=== PATIENT | female | born 1965 | race American Indian/Alaskan Native ===

== ENCOUNTER 2017-01-30 21:08 | Observation (INO) | payer BC, OTHER ==
[2017-01-30] MEDS ORDERED: Aspirin 81 MG Tab.Chew PO ONE (21:28)
[2017-01-30] MEDS ORDERED: Sodium Chloride 0.9% 10 ML Syringe FLUSH PRN (21:28)
[2017-01-30] MEDS ORDERED: Nicotine 21 MG/24 Hr Patch TRDERM ONE (23:03)
--- NOTE | 2017-01-30 23:24 | EDM.PDOC ---
ED HPI GENERAL MEDICAL PROBLEM - General Chief Complaint: Chest Pain Stated Complaint: CHEST PAIN Time Seen by Provider: 01/30/17 21:17 Source of Information: Reports: Patient History Limitations: Reports: No Limitations - History of Present Illness INITIAL COMMENTS - FREE TEXT/NARRATIVE: The patient presents with chest pain. This started this morning. It is described as pressure. It comes and goes and it is worse with exertion. She is sweaty at times with it and she has chills. She has a slight cough. She does not have any history of coronary artery disease but she does have diabetes , HTN, hypercholesterolemia and she smokes. She has a family history of heart disease. She denies abdominal pain, nausea or vomiting. She did not take aspirin today. She has shortness of breath with it. Onset: Gradual Duration: Hour(s): (Since this morning) Location: Reports: Chest Quality: Reports: Pressure Severity: Moderate Improves with: Reports: None Worsens with: Reports: Movement Associated Symptoms: Reports: Chest Pain, Cough, Fever/Chills, Shortness of Breath. Denies: Nausea/Vomiting Mid-Sternal Chest Pain Score (Numeric/FACES): 10 - Related Data Allergies Allergy/AdvReac Type Severity Reaction Status Date / Time No Known Allergies Allergy Verified 01/30/17 21:15 Home Meds: Home Meds DULoxetine [Cymbalta] 30 mg PO DAILY 01/30/17 [History] Diclofenac Sodium [Voltaren] 50 mg PO BIDMEALS PRN 01/30/17 [History] Losartan [Cozaar] 50 mg PO DAILY 01/30/17 [History] metFORMIN [Glucophage XR] 1,000 mg PO BIDMEALS 01/30/17 [History] Past Medical History Cardiovascular History: Reports: High Cholesterol, Hypertension Gastrointestinal History: Reports: GERD Psychiatric History: Reports: Depression Endocrine/Metabolic History: Reports: Diabetes, Type II - Past Surgical History Female Surgical History: Reports: Tubal Ligation Social & Family History - Tobacco Use Smoking Status *Q: Current Every Day Smoker Years of Tobacco use: 30 Packs/Tins Daily: 1 - Caffeine Use Caffeine Use: Reports: Coffee - Recreational Drug Use Recreational Drug Use: No ED ROS GENERAL - Review of Systems Review Of Systems: See Below Constitutional: Reports: No Symptoms HEENT: Reports: No Symptoms Respiratory: Reports: Shortness of Breath Cardiovascular: Reports: Chest Pain Endocrine: Reports: No Symptoms GI/Abdominal: Reports: No Symptoms : Reports: No Symptoms Musculoskeletal: Reports: No Symptoms Skin: Reports: No Symptoms Neurological: Reports: No Symptoms ED EXAM, GENERAL - Physical Exam Exam: See Below Exam Limited By: No Limitations General Appearance: Alert, No Apparent Distress Ears: Normal External Exam Nose: Normal Inspection Head: Atraumatic, Normocephalic Neck: Normal Inspection Respiratory/Chest: No Respiratory Distress, Lungs Clear, Normal Breath Sounds Cardiovascular: Regular Rate, Rhythm, No Edema, No Murmur GI/Abdominal: Soft, Non-Tender, No Organomegaly, No Mass Back Exam: Normal Inspection Extremities: Normal Inspection Neurological: Alert, Oriented, No Motor/Sensory Deficits EKG INTERPRETATION EKG Date: 01/30/17 Time: 21:18 Rhythm: NSR Rate (Beats/Min): 76 [place]: Normal P-Wave: Present QRS: Normal ST-T: Normal QT: Normal Course - Vital Signs Last Recorded V/S: Last Vital Signs Temp 98.7 F 01/30/17 21:15 Pulse 80 01/30/17 21:15 Resp 20 01/30/17 21:15 BP 160/80 H 01/30/17 21:15 Pulse Ox 96 01/30/17 21:15 - Orders/Labs/Meds Orders: Active Orders 24 hr Category Date Time Status Cardiac Monitoring [RC] . DIRECTED Care 01/30/17 21:28 Active EKG 12 Lead [EKG Documentation Completion] [RC] STAT Care 01/30/17 21:22 Active Oxygen Therapy [RC] PRN Care 01/30/17 21:28 Active Peripheral IV Care [RC] . DIRECTED Care 01/30/17 21:28 Active Chest 1V Frontal [CR] Stat Exams 01/30/17 21:28 Taken Sodium Chloride 0.9% [Saline Flush] Med 01/30/17 21:28 Active 10 ml FLUSH ASDIRECTED PRN Peripheral IV Insertion Adult [OM.PC] Stat Oth 01/30/17 21:28 Ordered Medication Orders Sodium Chloride (Saline Flush) 10 ml FLUSH ASDIRECTED PRN PRN Reason: Keep Vein Open Last Admin: 01/30/17 21:36 Dose: 10 ml Labs: Laboratory Tests 01/30/17 01/30/17 01/30/17 Range/Units 21:30 21:30 21:30 WBC 8.90 (3.98-10.04) K/mm3 RBC 4.77 (3.98-5.22) M/mm3 Hgb 15.0 (11.2-15.7) gm/L Hct 42.8 (34.1-44.9) % MCV 89.7 (79.4-94.8) fl MCH 31.4 (25.6-32.2) pg MCHC 35.0 (32.2-35.5) g/dl RDW Std Deviation 43.0 (36.4-46.3) fL Plt Count 264 (182-369) K/mm3 MPV 10.2 (9.4-12.3) fl Neut % (Auto) 51.0 (34.0-71.1) % Lymph % (Auto) 38.8 (19.3-51.7) % Worth % (Auto) 7.6 (4.7-12.5) % Eos % (Auto) 1.6 (0.7-5.8) Baso % (Auto) 0.7 (0.1-1.2) % Neut # (Auto) 4.54 (1.56-6.13) K/mm3 Lymph # (Auto) 3.45 (1.18-3.74) K/mm3 Worth # (Auto) 0.68 H (0.24-0.36) K/mm3 Eos # (Auto) 0.14 (0.04-0.36) K/mm3 Baso # (Auto) 0.06 (0.01-0.08) K/mm3 D-Dimer, Quantitative 0.23 (0.19-0.59) mg/L Sodium 134 L (136-145) mEq/L Potassium 3.8 (3.5-5.1) mEq/L Chloride 99 (98-107) mEq/L Carbon Dioxide 25 (21-32) mEq/L Anion Gap 13.8 (5-15) BUN 10 (7-18) mg/dL Creatinine 0.6 (0.55-1.02) mg/dL Est Cr Clr Drug Dosing 93.64 mL/min Estimated GFR (MDRD) > 60 (>60) mL/min BUN/Creatinine Ratio 16.7 (14-18) Glucose 396 H (74-106) mg/dL Calcium 9.2 (8.5-10.1) mg/dL Total Bilirubin 0.6 (0.2-1.0) mg/dL AST 17 (15-37) U/L ALT 30 (14-59) U/L Alkaline Phosphatase 114 (46-116) U/L Troponin I < 0.017 (0.00-0.056) ng/mL Total Protein 7.2 (6.4-8.2) g/dl Albumin 3.6 (3.4-5.0) g/dl Globulin 3.6 gm/dL Albumin/Globulin Ratio 1.0 (1-2) Meds: Medications Generic Name Dose Route Start Last Admin Trade Name Freq PRN Reason Stop Dose Admin Sodium Chloride 10 ml 01/30/17 21:28 01/30/17 21:36 Saline Flush FLUSH 10 ml ASDIRECTED PRN Administration Keep Vein Open Discontinued Medications Generic Name Dose Route Start Last Admin Trade Name Freq PRN Reason Stop Dose Admin Aspirin 324 mg 01/30/17 21:28 01/30/17 21:36 Aspirin PO 01/30/17 21:29 324 mg ONETIME ONE Administration Nicotine 21 mg 01/30/17 23:03 Habitrol TRDERM 01/30/17 23:04 ONETIME ONE - Re-Assessments/Exams Free Text/Narrative Re-Assessment/Exam: 01/30/17 23:35 I ordered an IV saline lock, oxygen as needed, EKG, CXR, labs and aspirin. Her EKG shows a NSR with no acute changes. Her CXR shows nothing acute. Her labs look good. Her troponin was negative. Her CP is gone with the aspirin. I feel she needs to be admitted for chest pain rule out. I called Dr Geronimo and she agreed to the admission. Departure - Departure Time of Disposition: 23:26 Disposition: Refer to Observation Condition: Good Clinical Impression: Chest pain Qualifiers: Chest pain type: unspecified Qualified Code(s): R07.9 - Chest pain, unspecified Referrals: PCP,None [Primary Care Provider] - Forms: ED Department Discharge - My Orders Last 24 Hours: My Active Orders 01/30/17 21:22 EKG 12 Lead [EKG Documentation Completion] [RC] STAT 01/30/17 21:28 Cardiac Monitoring [RC] . DIRECTED Oxygen Therapy [RC] PRN Peripheral IV Care [RC] . DIRECTED Chest 1V Frontal [CR] Stat Sodium Chloride 0.9% [Saline Flush] 10 ml FLUSH ASDIRECTED PRN Peripheral IV Insertion Adult [OM.PC] Stat - Assessment/Plan Last 24 Hours: My Active Orders 01/30/17 21:22 EKG 12 Lead [EKG Documentation Completion] [RC] STAT 01/30/17 21:28 Cardiac Monitoring [RC] . DIRECTED Oxygen Therapy [RC] PRN Peripheral IV Care [RC] . DIRECTED Chest 1V Frontal [CR] Stat Sodium Chloride 0.9% [Saline Flush] 10 ml FLUSH ASDIRECTED PRN Peripheral IV Insertion Adult [OM.PC] Stat
[2017-01-31] MEDS ORDERED: Nitroglycerin 0.4 MG Tab.SL SL PRN (00:36)
[2017-01-31] MEDS ORDERED: Temazepam 7.5 MG Cap PO PRN (00:36)
[2017-01-31] MEDS ORDERED: 50% Dextrose in Water 50 ML Syringe IVPUSH PRN (00:36)
[2017-01-31] MEDS: Insulin Aspart 100 Units/ML 3 ML Pen SUBCUT SCH ×6 (01:08→21:00)
[2017-01-31] MEDS: Nitroglycerin 2% Oint 1 GM UD Packet TOP SCH ×2 (01:10→06:01)
[2017-01-31] MEDS ORDERED: Diphtheria,Pertussis(Acell),Tetanus Vaccine 0.5 ML SDV IM ONE (01:17)
[2017-01-31] MEDS ORDERED: Pneumococcal Polyvalent-23 Vaccine 0.5 ML SDV IM ONE (01:17)
[2017-01-31] MEDS ORDERED: Acetaminophen 325 MG Tab PO ONE (01:47)
[2017-01-31] MEDS ORDERED: Morphine 2 MG/ML Syringe IVPUSH PRN (06:44)
[2017-01-31] MEDS ORDERED: Potassium Chloride 20 MEQ Tab.ER PO ONE (07:01)
[2017-01-31] MEDS ORDERED: Magnesium Oxide 400 MG Tab PO ONE (07:02)
--- NOTE | 2017-01-31 07:40 | CR ---
Chest: Portable view of the chest was obtained. Comparison: Previous chest x-ray of 03/30/10. Heart size and mediastinum are within normal limits for portable technique. Nodular density is noted within the left upper lung believed to represent costochondral calcification of the left first rib. Lungs otherwise are clear. Mild degenerative change is seen within both acromioclavicular joints. Impression: 1. Incidental findings. Nothing acute is appreciated on portable chest x-ray. Diagnostic code #2
[2017-01-31] MEDS: Pantoprazole 40 MG Tab.CR PO SCH (09:41)
[2017-01-31] MEDS: DULoxetine 30 MG Cap PO SCH (09:41)
--- NOTE | 2017-01-31 09:45 | PCM.HP ---
<Silvano Zimmerman - Last Filed: 01/31/17 12:38> H&P History of Present Illness - General Date of Service: 01/31/17 Admit Problem/Dx: Admission Diagnosis/Problem Admission Diagnosis/Problem Chest pain Source of Information: Patient, Old Records, RN Notes Reviewed History Limitations: Reports: No Limitations - History of Present Illness Initial Comments - Free Text/Narative: Janessa Brown is a 51-year-old female patient who was seen in our ED on the evening of 01/30/17. She presented with a chest pressure that started in the morning, comes and goes, and was worse with exertion. She reported being sweaty at times and having chills. She also reported a slight cough productive of clear phlegm. No history of CAD, however she does have a history of type II diabetes, HTN, hypercholesterolemia, GERD, and she is a smoker. She reports smoking 1 pack every day for 30 years. She does have a family history of heart disease with her mother. Denies abdominal pain nausea or vomiting. She denies any shortness of breath. Her initial vital signs were pulse 80, respirations 20 , BP 160/80, pulse ox of 96. EKG in the ED showed normal sinus rhythm at 76 beats per minute with no ectopy noted. She was started on 2 L of oxygen and given aspirin. White count was 8.90, hemoglobin 15.0, hematocrit 42.8, platelets 264, d-dimer was negative at 0.23, her sodium was low at 136, potassium 3.8, creatinine 0.6, liver enzymes were normal, and troponin was negative. Her glucose was elevated at 396. Her chest pain resolved in the ED and she was subsequently admitted to [facility] for chest pain rule out. Chest x-ray was unremarkable with mediastinum and cardiac silhouette within normal limits. There were some degenerative changes noted. She was started on nitroglycerin paste and oxygen therapy via CT continued at 2 L. Upon further investigation patient reports that the chest pressure does come and go occasionally and she has had it for some time. She rates it a 10/10 when it does occur. She said she can normally hold her breath or rest and the feeling will go away, lasting only for a few seconds. She did however state that he can last as long as a couple of minutes. She reported the pressure will start above her left breast and sometimes will radiate to the right side. It does not radiate into her neck, back, or arms. It is currently a 1-2 in intensity. She has never been evaluated for this chest pressure before. She also is complaining of a headache. She reports they are migraines, however upon further examination, they start in the back of her neck and radiate upwards to her forehead in a cap-like fashion. She reports being on OTC medication for this with caffeine. She has been a type II diabetic for quite sometime. Her sugars here have been rather high. I questioned her about what her sugars have been at home and she reports are normally in the 300s. She states she checks her sugars about once a week. I asked who follows her for diabetic medications and how often they check her, or if there have been any concerns with her numbers lately. She reports that she has had difficulty getting in to [facility], as there fairly booked up. She also states that she is unable to get a regular provider when she goes there. She states she was as low as 150 once many years ago however she has not been that low since then. Onset of Symptoms: Reports: Gradual Symptom Onset Date: 01/30/17 Duration of Symptoms: Reports: Recurring, Other (Seconds to minutes ) Location: Reports: Chest Quality: Reports: Sharp Severity: Severe Improves with: Reports: Rest Worsens with: Reports: Movement Context: Reports: Sick Contact (Daughter Dx'ed with hand, foot, and mouth disease ) Associated Symptoms: Reports: cough w sputum (chronic with white/clear sputum), Headaches Mid-Sternal Chest Pain Score (Numeric/FACES): 4 - Related Data Allergies/Adverse Reactions: Allergies Allergy/AdvReac Type Severity Reaction Status Date / Time No Known Allergies Allergy Verified 01/31/17 02:34 Home Medications: Home Meds DULoxetine [Cymbalta] 30 mg PO DAILY 01/30/17 [History] Diclofenac Sodium [Voltaren] 100 mg PO BIDMEALS PRN 01/30/17 [History] Losartan [Cozaar] 50 mg PO DAILY 01/30/17 [History] metFORMIN [Glucophage XR] 1,000 mg PO BIDMEALS 01/30/17 [History] Aspirin/Acetaminophen/Caffeine [Migraine Formula Caplet] 1 tab PO Q12HR PRN 10/12 [History] Cyclobenzaprine [Flexeril] 10 mg PO BID PRN 01/31/17 [History] Ibuprofen 800 mg PO Q8HR PRN 01/31/17 [History] Omeprazole Magnesium [Prilosec Otc] 20 mg PO DAILY 01/31/17 [History] Past Medical History Other HEENT History: Glasses Cardiovascular History: Reports: High Cholesterol, Hypertension Gastrointestinal History: Reports: Chronic Constipation, Chronic Diarrhea, GERD Genitourinary History: Reports: UTI, 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 Fracture to lower vertibrae 6 years ago. Neurological History: Reports: Headaches, Chronic, Migraines Other Neuro History: past month frequent migraines Psychiatric History: Reports: Anxiety, Depression, Panic Attack Other Psychiatric History: Anxiety/Panic attacks with enclosed spaces, driving, or loud spaces. recently started on pills for Depression in November Endocrine/Metabolic History: Reports: Diabetes, Type II - Past Surgical History Female Surgical History: Reports: Tubal Ligation Social & Family History - Family History Cardiac: Reports: Heart Failure Other Cardiac Family History: mom and sister. - Tobacco Use Smoking Status *Q: Current Every Day Smoker Years of Tobacco use: 35 Packs/Tins Daily: 1 Used Tobacco, but Quit: No Second Hand Smoke Exposure: Yes - Caffeine Use Caffeine Use: Reports: Coffee - Alcohol Use Days Per Week of Alcohol Use: 2 Number of Drinks Per Day: 5 Total Drinks Per Week: 10 - Recreational Drug Use Recreational Drug Use: No H&P Review of Systems - Review of Systems: Review Of Systems: See Below General: Denies: Fever, Chills (has had but none currently), Weakness, Fatigue, Night Sweats HEENT: Reports: Headaches (3-4 in pain), Sore Throat (mild ). Denies: Ear Pain , Eye Pain, Hearing Changes, Sinus Congestion, Visual Changes Pulmonary: Reports: Cough (chronic ), Sputum (chronic and clear ). Denies: Shortness of Breath, Wheezing, Pleuritic Chest Pain Cardiovascular: Denies: Chest Pain, Palpitations, Dyspnea on Exertion, Edema, Lightheadedness, Syncope, Claudication Gastrointestinal: Denies: Abdominal Pain, Black Stool, Constipation, Diarrhea, Distension, Flatus, Nausea, Vomiting Genitourinary: Denies: Dysuria, Pain, Urgency Musculoskeletal: Reports: No Symptoms Skin: Denies: Cyanosis, Jaundice, Mottled, Diaphoresis Psychiatric: Reports: No Symptoms Neurological: Reports: No Symptoms Hematologic/Lymphatic: Reports: No Symptoms Immunologic: Reports: No Symptoms Exam - Exam Exam: See Below - Vital Signs Vital Signs: Last Vital Signs Temp 97.9 F 01/31/17 07:30 Pulse 68 01/31/17 07:30 Resp 16 01/31/17 07:30 BP 115/62 01/31/17 07:30 Pulse Ox 97 01/31/17 07:30 Weight: 80.739 kg - Exam Quality Assessment: Supplemental Oxygen (2L), DVT Prophylaxis General: Alert, Oriented, Cooperative HEENT: Conjunctiva Clear, EOMI, Hearing Intact, Mucosa Moist & [place], Posterior Pharynx Clear, Pupils Equal, Pupils Reactive Neck: Supple, Trachea Midline. No: Lymphadenopathy, JVD, Thyromegaly Lungs: Clear to Auscultation, Normal Respiratory Effort, Wheezing Cardiovascular: Regular Rate, Regular Rhythm GI/Abdominal Exam: Normal Bowel Sounds, Soft, Non-Tender, No Organomegaly, No Distention, No Abnormal Bruit, No Mass (Female) Exam: Deferred Rectal (Female) Exam: Deferred Back Exam: Normal Inspection, Full Range of Motion Extremities: Normal Inspection, Normal Range of Motion, Non-Tender, No Pedal Edema, Normal Capillary Refill Peripheral Pulses: 2+: Radial (L), Radial (R), Posterior Tibial (L), Posterior Tibial (R), Dorsalis Pedis (L), Dorsalis Pedis (R) Skin: Warm, Dry, Intact Neuro Extensive - Mental Status: Alert, Oriented x3, Normal Mood/Affect, Normal Cognition Psychiatric: Alert, Normal Affect, Normal Mood - Patient Data Lab Results Last 24 hrs: Laboratory Results - last 24 hr 01/31/17 01/31/17 01/31/17 Range/Units 01:08 05:43 05:43 WBC 8.92 (3.98-10.04) K/mm3 RBC 4.78 (3.98-5.22) M/mm3 Hgb 15.1 (11.2-15.7) gm/L Hct 43.0 (34.1-44.9) % MCV 90.0 (79.4-94.8) fl MCH 31.6 (25.6-32.2) pg MCHC 35.1 (32.2-35.5) g/dl RDW Std Deviation 42.8 (36.4-46.3) fL Plt Count 255 (182-369) K/mm3 MPV 10.3 (9.4-12.3) fl Neut % (Auto) 56.4 (34.0-71.1) % Lymph % (Auto) 33.3 (19.3-51.7) % [place] % (Auto) 7.0 (4.7-12.5) % Eos % (Auto) 2.4 (0.7-5.8) Baso % (Auto) 0.6 (0.1-1.2) % Neut # (Auto) 5.04 (1.56-6.13) K/mm3 Lymph # (Auto) 2.97 (1.18-3.74) K/mm3 [place] # (Auto) 0.62 H (0.24-0.36) K/mm3 Eos # (Auto) 0.21 (0.04-0.36) K/mm3 Baso # (Auto) 0.05 (0.01-0.08) K/mm3 Sodium 139 (136-145) mEq/L Potassium 3.4 L (3.5-5.1) mEq/L Chloride 101 (98-107) mEq/L Carbon Dioxide 28 (21-32) mEq/L Anion Gap 13.4 (5-15) BUN 13 (7-18) mg/dL Creatinine 0.5 L (0.55-1.02) mg/dL Est Cr Clr Drug Dosing 114.72 mL/min Estimated GFR (MDRD) > 60 (>60) mL/min BUN/Creatinine Ratio 26.0 H (14-18) Glucose 261 H (74-106) mg/dL POC Glucose 262 H (70-105) mg/dL Hemoglobin A1c (4.50-6.20) % Calcium 8.6 (8.5-10.1) mg/dL Magnesium 1.7 L (1.8-2.4) mg/dl Troponin I < 0.017 (0.00-0.056) ng/mL Triglycerides 237 H (<150) mg/dL Cholesterol 215 H (<200) mg/dL LDL Cholesterol Direct 145 H* (<100) mg/dL HDL Cholesterol 39.0 L (40-59) mg/dL 01/31/17 01/31/17 Range/Units 05:43 05:59 WBC (3.98-10.04) K/mm3 RBC (3.98-5.22) M/mm3 Hgb (11.2-15.7) gm/L Hct (34.1-44.9) % MCV (79.4-94.8) fl MCH (25.6-32.2) pg MCHC (32.2-35.5) g/dl RDW Std Deviation (36.4-46.3) fL Plt Count (182-369) K/mm3 MPV (9.4-12.3) fl Neut % (Auto) (34.0-71.1) % Lymph % (Auto) (19.3-51.7) % [place] % (Auto) (4.7-12.5) % Eos % (Auto) (0.7-5.8) Baso % (Auto) (0.1-1.2) % Neut # (Auto) (1.56-6.13) K/mm3 Lymph # (Auto) (1.18-3.74) K/mm3 [place] # (Auto) (0.24-0.36) K/mm3 Eos # (Auto) (0.04-0.36) K/mm3 Baso # (Auto) (0.01-0.08) K/mm3 Sodium (136-145) mEq/L Potassium (3.5-5.1) mEq/L Chloride (98-107) mEq/L Carbon Dioxide (21-32) mEq/L Anion Gap (5-15) BUN (7-18) mg/dL Creatinine (0.55-1.02) mg/dL Est Cr Clr Drug Dosing mL/min Estimated GFR (MDRD) (>60) mL/min BUN/Creatinine Ratio (14-18) Glucose (74-106) mg/dL POC Glucose 253 H (70-105) mg/dL Hemoglobin A1c 9.20 H (4.50-6.20) % Calcium (8.5-10.1) mg/dL Magnesium (1.8-2.4) mg/dl Troponin I (0.00-0.056) ng/mL Triglycerides (<150) mg/dL Cholesterol (<200) mg/dL LDL Cholesterol Direct (<100) mg/dL HDL Cholesterol (40-59) mg/dL Result Diagrams: 01/31/17 05:43 01/31/17 05:43 EKG INTERPRETATION EKG Date: 01/31/17 Time: 05:47 Rhythm: NSR Rate (Beats/Min): 71 [place]: Normal P-Wave: Present QRS: Normal ST-T: Normal QT: Normal Comparison: No Change (Prior EKG on 01/30/17) *Q Meaningful Use (ADM) - VTE *Q VTE Criteria *Q: - Stroke *Q Stroke Criteria *Q: - AMI *Q AMI Criteria *Q: - Problem List (1) Headache SNOMED Code(s): 49082456 ICD Code: R51 - HEADACHE Status: Acute Priority: Medium Current Visit: Yes QualifierTitle: Headache type: tension-type Headache chronicity pattern: episodic headache Intractability: intractable Qualified Code(s): G44.211 - Episodic tension-type headache, intractable (2) Cough productive of clear sputum SNOMED Code(s): 68340721 ICD Code: R05 - COUGH Status: Acute Priority: Low Current Visit: Yes (3) Hyperglycemia due to type 2 diabetes mellitus SNOMED Code(s): 343407093062799, 328943853861601 ICD Code: E11.65 - TYPE 2 DIABETES MELLITUS WITH HYPERGLYCEMIA Status: Acute Priority: High Current Visit: Yes QualifierTitle: Diabetes mellitus director instructional material insulin use: unspecified director instructional material insulin use status Qualified Code(s): E11.65 - Type 2 diabetes mellitus with hyperglycemia (4) Hypertension SNOMED Code(s): 92912103 ICD Code: I10 - ESSENTIAL (PRIMARY) HYPERTENSION Status: Chronic Priority : Medium Current Visit: Yes QualifierTitle: Hypertension type: unspecified Qualified Code(s): I10 - Essential (primary) hypertension (5) Hypercholesterolemia SNOMED Code(s): 49766961 ICD Code: E78.00 - PURE HYPERCHOLESTEROLEMIA, UNSPECIFIED Status: Acute Priority: High Current Visit: Yes (6) Tobacco use disorder SNOMED Code(s): 573940708, 594395057 ICD Code: F17.200 - NICOTINE DEPENDENCE, UNSPECIFIED, UNCOMPLICATED Status : Acute Priority: Medium Current Visit: Yes Problem List Initiated/Reviewed/Updated: Yes Orders Last 24hrs: Active Orders 24 hr Category Date Time Status Activity as Tolerated [RC] [facility] Care 01/31/17 00:33 Active Blood Glucose Check, Bedside [] QIDACANDBED Care 01/31/17 00:36 Active EKG 12 Lead [EKG Documentation Completion] [RC] QSWAFT Care 01/31/17 00:42 Active EKG Documentation Completion [RC] 0600 Care 01/31/17 06:00 Active Vaccines to be Administered [RC] PER UNIT ROUTINE Care 01/31/17 01:17 Active Citizen Of [place] Diabetic Association Diet [DIET] Diet 01/31/17 Breakfast Active Echo Comp wo Cont [US] Routine Exams 01/31/17 00:36 Ordered CBC WITH AUTO DIFF [HEME] DAILY Lab 02/01/17 00:45 Ordered CBC WITH AUTO DIFF [HEME] DAILY Lab 02/02/17 00:45 Ordered CBC WITH AUTO DIFF [HEME] DAILY Lab 02/03/17 00:45 Ordered CBC WITH AUTO DIFF [HEME] DAILY Lab 02/04/17 00:45 Ordered CBC WITH AUTO DIFF [HEME] DAILY Lab 02/05/17 00:45 Ordered FOLIC ACID [CHEM] Routine Lab 01/31/17 05:43 Received TSH [CHEM] Routine Lab 01/31/17 05:43 Received VITAMIN B12 [CHEM] Routine Lab 01/31/17 05:43 Received DULoxetine [Cymbalta] Med 01/31/17 09:00 Active 30 mg PO DAILY Dextrose 50% in Water Med 01/31/17 00:36 Active 50 ml IVPUSH ASDIRECTED PRN Enoxaparin [Lovenox] Med 01/31/17 09:00 Active 40 mg SUBCUT DAILY Insulin Aspart [NovoLOG] Med 01/31/17 00:45 Active See Protocol SUBCUT QIDACANDBED Losartan [Cozaar] Med 01/31/17 09:00 Active 50 mg PO DAILY Morphine Med 01/31/17 06:44 Active 2 mg IVPUSH Q4H PRN Nicotine [Habitrol] Med 01/31/17 21:00 Active 21 mg TRDERM DAILY Nitroglycerin [Nitrostat] Med 01/31/17 00:36 Active 0.4 mg SL Q5M PRN Pantoprazole [ProTONIX] Med 01/31/17 07:00 Active 40 mg PO DAILY@0700 Remove Patch Med 01/31/17 21:00 Active 1 ea TRDERM BEDTIME Rosuvastatin [Crestor] Med 01/31/17 21:00 Active 10 mg PO BEDTIME Temazepam [Restoril] Med 01/31/17 00:36 Active 7.5 mg PO BEDTIME PRN Resuscitation Status Routine Resus Stat 01/31/17 00:36 Ordered Medication Orders Dextrose/Water (Dextrose 50% In Water) 50 ml IVPUSH ASDIRECTED PRN PRN Reason: Hypoglycemia Duloxetine HCl (Cymbalta) 30 mg PO DAILY MIKE Enoxaparin Sodium (Lovenox) 40 mg SUBCUT DAILY MIKE Insulin Aspart (Novolog) 0 unit SUBCUT QIDACANDBED MIKE PRN Reason: Protocol Last Admin: 01/31/17 06:00 Dose: 3 units Admin: 01/31/17 01:08 Dose: 3 units Losartan Potassium (Cozaar) 50 mg PO DAILY [facility] Miscellaneous Information (Remove Patch) 1 ea TRDERM BEDTIME MIKE Morphine Sulfate (Morphine) 2 mg IVPUSH Q4H PRN PRN Reason: Pain Last Admin: 01/31/17 06:57 Dose: 2 mg Nicotine (Habitrol) 21 mg TRDERM DAILY [facility] Nitroglycerin (Nitrostat) 0.4 mg SL Q5M PRN PRN Reason: Chest Pain Pantoprazole Sodium (Protonix) 40 mg PO DAILY@0700 MIKE Rosuvastatin Calcium (Crestor) 10 mg PO BEDTIME MIKE Sodium Chloride (Saline Flush) 10 ml FLUSH ASDIRECTED PRN PRN Reason: Keep Vein Open Last Admin: 01/30/17 21:36 Dose: 10 ml Temazepam (Restoril) 7.5 mg PO BEDTIME PRN PRN Reason: Sleep Assessment/Plan Comment:: I/P: Acute: Chest pain/pressure (Rule out NH): - Left chest radiating to right chest - EKG in ED (01/30/17)- NSR with HR of 76 - no ectopy - Repeat EKG (01/31/17) NSR with HR of 71 - no ectopy - Negative troponins in ED on 01/30/17 and while in [facility] on 01/31/17 - Risk factors for NH: 30 year pack a day smoker, positive family hx, Type II diabetic (poorly controlled), HTN, hypercholesterolemia, obese. - Will order echo - Will order stress test for tomorrow AM - O2, nitroglycerine paste, ASA, morphine - Monitor troponins Headache - Avoiding caffeine if possible, as attempting to rule out cardiac cause of CP - Possibly 2/2 nitroglycerine administration - Treat as indicated/needed Chronic: HTN Type II Diabetic: - BS in 300's - Poorly controlled at home - Novolog per protocol - Monitor blood sugars as indicated - Diabetic diet - software educator consult - F/U with PCP to optimize treatment Hypercholesterolemia - Lipid panel - Begin crestor - titrate as needed - Will arrange f/u with PCP to monitor this Tobacco use disorder - nicotine patch - smoking cessation counseling Plan: SW/CM for discharge planning PT/OT as needed Routine labs as ordered GI/DVT prophylaxis Other orders as indicated above. Code status: Full code <Carmenza Geronimodevon Miranda - Last Filed: 01/31/17 13:39> H&P History of Present Illness - General Admit Problem/Dx: Admission Diagnosis/Problem Admission Diagnosis/Problem Chest pain Exam - Vital Signs Vital Signs: Last Vital Signs Temp 36.5 C 01/31/17 11:15 Pulse 74 01/31/17 11:15 Resp 16 01/31/17 11:15 BP 107/67 01/31/17 11:15 Pulse Ox 91 L 01/31/17 11:15 - Patient Data Lab Results Last 24 hrs: Laboratory Results - last 24 hr 01/31/17 01/31/17 01/31/17 Range/Units 01:08 05:43 05:43 WBC 8.92 (3.98-10.04) K/mm3 RBC 4.78 (3.98-5.22) M/mm3 Hgb 15.1 (11.2-15.7) gm/L Hct 43.0 (34.1-44.9) % MCV 90.0 (79.4-94.8) fl MCH 31.6 (25.6-32.2) pg MCHC 35.1 (32.2-35.5) g/dl RDW Std Deviation 42.8 (36.4-46.3) fL Plt Count 255 (182-369) K/mm3 MPV 10.3 (9.4-12.3) fl Neut % (Auto) 56.4 (34.0-71.1) % Lymph % (Auto) 33.3 (19.3-51.7) % [place] % (Auto) 7.0 (4.7-12.5) % Eos % (Auto) 2.4 (0.7-5.8) Baso % (Auto) 0.6 (0.1-1.2) % Neut # (Auto) 5.04 (1.56-6.13) K/mm3 Lymph # (Auto) 2.97 (1.18-3.74) K/mm3 [place] # (Auto) 0.62 H (0.24-0.36) K/mm3 Eos # (Auto) 0.21 (0.04-0.36) K/mm3 Baso # (Auto) 0.05 (0.01-0.08) K/mm3 Sodium 139 (136-145) mEq/L Potassium 3.4 L (3.5-5.1) mEq/L Chloride 101 (98-107) mEq/L Carbon Dioxide 28 (21-32) mEq/L Anion Gap 13.4 (5-15) BUN 13 (7-18) mg/dL Creatinine 0.5 L (0.55-1.02) mg/dL Est Cr Clr Drug Dosing 114.72 mL/min Estimated GFR (MDRD) > 60 (>60) mL/min BUN/Creatinine Ratio 26.0 H (14-18) Glucose 261 H (74-106) mg/dL POC Glucose 262 H (70-105) mg/dL Hemoglobin A1c (4.50-6.20) % Calcium 8.6 (8.5-10.1) mg/dL Magnesium 1.7 L (1.8-2.4) mg/dl Troponin I < 0.017 (0.00-0.056) ng/mL Triglycerides 237 H (<150) mg/dL Cholesterol 215 H (<200) mg/dL LDL Cholesterol Direct 145 H* (<100) mg/dL HDL Cholesterol 39.0 L (40-59) mg/dL Vitamin B12 (193-986) pg/ml Folate (8.6-58.9) ng/mL TSH 3rd Generation (0.358-3.74) uIU/mL 01/31/17 01/31/17 01/31/17 Range/Units 05:43 05:43 05:43 WBC (3.98-10.04) K/mm3 RBC (3.98-5.22) M/mm3 Hgb (11.2-15.7) gm/L Hct (34.1-44.9) % MCV (79.4-94.8) fl MCH (25.6-32.2) pg MCHC (32.2-35.5) g/dl RDW Std Deviation (36.4-46.3) fL Plt Count (182-369) K/mm3 MPV (9.4-12.3) fl Neut % (Auto) (34.0-71.1) % Lymph % (Auto) (19.3-51.7) % [place] % (Auto) (4.7-12.5) % Eos % (Auto) (0.7-5.8) Baso % (Auto) (0.1-1.2) % Neut # (Auto) (1.56-6.13) K/mm3 Lymph # (Auto) (1.18-3.74) K/mm3 [place] # (Auto) (0.24-0.36) K/mm3 Eos # (Auto) (0.04-0.36) K/mm3 Baso # (Auto) (0.01-0.08) K/mm3 Sodium (136-145) mEq/L Potassium (3.5-5.1) mEq/L Chloride (98-107) mEq/L Carbon Dioxide (21-32) mEq/L Anion Gap (5-15) BUN (7-18) mg/dL Creatinine (0.55-1.02) mg/dL Est Cr Clr Drug Dosing mL/min Estimated GFR (MDRD) (>60) mL/min BUN/Creatinine Ratio (14-18) Glucose (74-106) mg/dL POC Glucose (70-105) mg/dL Hemoglobin A1c 9.20 H (4.50-6.20) % Calcium (8.5-10.1) mg/dL Magnesium (1.8-2.4) mg/dl Troponin I (0.00-0.056) ng/mL Triglycerides (<150) mg/dL Cholesterol (<200) mg/dL LDL Cholesterol Direct (<100) mg/dL HDL Cholesterol (40-59) mg/dL Vitamin B12 1558 H (193-986) pg/ml Folate 34.6 (8.6-58.9) ng/mL TSH 3rd Generation (0.358-3.74) uIU/mL 01/31/17 01/31/17 01/31/17 Range/Units 05:43 05:59 11:16 WBC (3.98-10.04) K/mm3 RBC (3.98-5.22) M/mm3 Hgb (11.2-15.7) gm/L Hct (34.1-44.9) % MCV (79.4-94.8) fl MCH (25.6-32.2) pg MCHC (32.2-35.5) g/dl RDW Std Deviation (36.4-46.3) fL Plt Count (182-369) K/mm3 MPV (9.4-12.3) fl Neut % (Auto) (34.0-71.1) % Lymph % (Auto) (19.3-51.7) % [place] % (Auto) (4.7-12.5) % Eos % (Auto) (0.7-5.8) Baso % (Auto) (0.1-1.2) % Neut # (Auto) (1.56-6.13) K/mm3 Lymph # (Auto) (1.18-3.74) K/mm3 [place] # (Auto) (0.24-0.36) K/mm3 Eos # (Auto) (0.04-0.36) K/mm3 Baso # (Auto) (0.01-0.08) K/mm3 Sodium (136-145) mEq/L Potassium (3.5-5.1) mEq/L Chloride (98-107) mEq/L Carbon Dioxide (21-32) mEq/L Anion Gap (5-15) BUN (7-18) mg/dL Creatinine (0.55-1.02) mg/dL Est Cr Clr Drug Dosing mL/min Estimated GFR (MDRD) (>60) mL/min BUN/Creatinine Ratio (14-18) Glucose (74-106) mg/dL POC Glucose 253 H 253 H (70-105) mg/dL Hemoglobin A1c (4.50-6.20) % Calcium (8.5-10.1) mg/dL Magnesium (1.8-2.4) mg/dl Troponin I (0.00-0.056) ng/mL Triglycerides (<150) mg/dL Cholesterol (<200) mg/dL LDL Cholesterol Direct (<100) mg/dL HDL Cholesterol (40-59) mg/dL Vitamin B12 (193-986) pg/ml Folate (8.6-58.9) ng/mL TSH 3rd Generation 1.690 (0.358-3.74) uIU/mL Result Diagrams: 01/31/17 05:43 01/31/17 05:43 *Q Meaningful Use (ADM) - VTE *Q VTE Criteria *Q: - Stroke *Q Stroke Criteria *Q: - AMI *Q AMI Criteria *Q: Orders Last 24hrs: Active Orders 24 hr Category Date Time Status Activity as Tolerated [RC] QSHIFT Care 01/31/17 00:33 Active Blood Glucose Check, Bedside [RC] QIDACANDBED Care 01/31/17 00:36 Active Cardiac/Pulmonary Rehab Charge [RC] PRN Care 01/31/17 13:19 Active Communication Order [RC] ASDIRECTED Care 01/31/17 13:00 Active EKG 12 Lead [EKG Documentation Completion] [RC] PRN Care 01/31/17 00:42 Active Vaccines to be Administered [RC] PER UNIT ROUTINE Care 01/31/17 01:17 Active Consult to Diabetic Nurse Specialist [CONS] Routine Cons 01/31/17 11:00 Active Citizen Of [place] Diabetic Association Diet [DIET] Diet 01/31/17 Breakfast Active NPO After Midnight [Nothing per Oral After Midnight Diet 01/31/17 Dinner Active Diet] [DIET] Echo Comp wo Cont [US] Routine Exams 01/31/17 00:36 Taken Myocardial Perf Spect Multi [NM] Routine Exams 02/01/17 07:00 Ordered CBC WITH AUTO DIFF [HEME] DAILY Lab 02/01/17 00:45 Ordered CBC WITH AUTO DIFF [HEME] DAILY Lab 02/02/17 00:45 Ordered CBC WITH AUTO DIFF [HEME] DAILY Lab 02/03/17 00:45 Ordered CBC WITH AUTO DIFF [HEME] DAILY Lab 02/04/17 00:45 Ordered CBC WITH AUTO DIFF [HEME] DAILY Lab 02/05/17 00:45 Ordered DULoxetine [Cymbalta] Med 01/31/17 09:00 Active 30 mg PO DAILY Dextrose 50% in Water Med 01/31/17 00:36 Active 50 ml IVPUSH ASDIRECTED PRN Enoxaparin [Lovenox] Med 01/31/17 09:00 Active 40 mg SUBCUT DAILY Insulin Aspart [NovoLOG] Med 01/31/17 13:00 Active See Protocol SUBCUT QIDACANDBED Losartan [Cozaar] Med 01/31/17 09:00 Active 50 mg PO DAILY Morphine Med 01/31/17 06:44 Active 2 mg IVPUSH Q4H PRN Nicotine [Habitrol] Med 01/31/17 21:00 Active 21 mg TRDERM DAILY Nitroglycerin [Nitrostat] Med 01/31/17 00:36 Active 0.4 mg SL Q5M PRN Pantoprazole [ProTONIX] Med 01/31/17 07:00 Active 40 mg PO DAILY@0700 Remove Patch Med 01/31/17 21:00 Active 1 ea TRDERM BEDTIME Rosuvastatin [Crestor] Med 01/31/17 21:00 Active 10 mg PO BEDTIME Temazepam [Restoril] Med 01/31/17 00:36 Active 7.5 mg PO BEDTIME PRN Resuscitation Status Routine Resus Stat 01/31/17 00:36 Ordered EKG Stress NM Cardiolyte [EK] Routine Ther 02/01/17 07:00 Ordered Medication Orders Dextrose/Water (Dextrose 50% In Water) 50 ml IVPUSH ASDIRECTED PRN PRN Reason: Hypoglycemia Duloxetine HCl (Cymbalta) 30 mg PO DAILY FOR[facility]LY [facility], [facility]–1983 Last Admin: 01/31/17 09:41 Dose: 30 mg Enoxaparin Sodium (Lovenox) 40 mg SUBCUT DAILY [facility], 1928–1983 Last Admin: 01/31/17 09:48 Dose: 40 mg Insulin Aspart (Novolog) 0 unit SUBCUT QIDACANDBED [facility]LY [facility], 1928–1983 PRN Reason: Protocol Losartan Potassium (Cozaar) 50 mg PO DAILY [facility], [facility]–1983 Last Admin: 01/31/17 10:51 Dose: Not Given Miscellaneous Information (Remove Patch) 1 ea TRDERM BEDTIME MIKE Morphine Sulfate (Morphine) 2 mg IVPUSH Q4H PRN PRN Reason: Pain Last Admin: 01/31/17 06:57 Dose: 2 mg Nicotine (Habitrol) 21 mg TRDERM DAILY [facility], [facility] Nitroglycerin (Nitrostat) 0.4 mg SL Q5M PRN PRN Reason: Chest Pain Pantoprazole Sodium (Protonix) 40 mg PO DAILY@0700 [facility], [facility] Last Admin: 01/31/17 09:41 Dose: 40 mg Rosuvastatin Calcium (Crestor) 10 mg PO BEDTIME [facility], [facility] Sodium Chloride (Saline Flush) 10 ml FLUSH ASDIRECTED PRN PRN Reason: Keep Vein Open Last Admin: 01/30/17 21:36 Dose: 10 ml Temazepam (Restoril) 7.5 mg PO BEDTIME PRN PRN Reason: Sleep Assessment/Plan Comment:: Atypical CP with significant risk factors, stress test 02/01/17.
[2017-01-31] MEDS: Enoxaparin 40 MG/0.4 ML Syringe SUBCUT SCH (09:48)
[2017-01-31] MEDS: Losartan 25 MG Tab PO SCH (10:51)
[2017-01-31] MEDS ORDERED: Cyclobenzaprine 10 MG Tab PO ONE (11:30)
[2017-01-31] MEDS: Nicotine 21 MG/24 Hr Patch TRDERM SCH (20:50)
[2017-01-31] MEDS ORDERED: Rosuvastatin 10 MG Tab PO SCH (21:00)
[2017-02-01] MEDS: Pantoprazole 40 MG Tab.CR PO SCH (06:53)
[2017-02-01] MEDS: Insulin Aspart 100 Units/ML 3 ML Pen SUBCUT SCH ×2 (07:56→11:39)
[2017-02-01] MEDS ORDERED: Sodium Chloride 0.9% 10 ML Syringe FLUSH SCH (08:30)
[2017-02-01] MEDS ORDERED: glipiZIDE 5 MG Tab PO SCH (10:00)
[2017-02-01] MEDS: Enoxaparin 40 MG/0.4 ML Syringe SUBCUT SCH (10:18)
[2017-02-01] MEDS: DULoxetine 30 MG Cap PO SCH (10:18)
[2017-02-01] MEDS: Losartan 25 MG Tab PO SCH (10:19)
[2017-02-01] MEDS: Nicotine 21 MG/24 Hr Patch TRDERM SCH (10:20)
[2017-02-01] MEDS ORDERED: Acetaminophen/HYDROcodone 325-5 MG Tab PO ONE (10:59)
[2017-02-01 13:34] VITALS: BP 118/69
--- NOTE | 2017-02-01 13:37 | PCM.PN ---
- General Info Date of Service: 02/01/17 Admission Dx/Problem (Free Text): Admission Diagnosis/Problem Admission Diagnosis/Problem Chest pain Patient is seen this morning. States slept very well last night. No bouts of chest pains overnight. Has been up and moving around. Headache is improved/ resolved from yesterday. C/O back and hip pains this morning, chronic and not unusual for her. She has been NPO since [place] for stress test today. Functional Status: Reports: Pain Controlled, Ambulating, Urinating. Denies: Tolerating Diet (NPO), New Symptoms - Review of Systems General: Reports: No Symptoms HEENT: Reports: No Symptoms Pulmonary: Reports: No Symptoms, Cough (morning cough "smokers cough") Cardiovascular: Denies: Chest Pain (none overnight), Palpitations Gastrointestinal: Reports: No Symptoms. Denies: Abdominal Pain, Diarrhea, Nausea, Vomiting Genitourinary: Reports: No Symptoms Musculoskeletal: Reports: Back Pain (chronic), Other (hip pain bilat- chronic) Neurological: Reports: No Symptoms - Patient Data Vitals - Most Recent: Last Vital Signs Temp 97.5 F 02/01/17 05:16 Pulse 76 02/01/17 08:12 Resp 16 02/01/17 08:12 BP 122/73 02/01/17 10:19 Pulse Ox 100 02/01/17 09:00 Weight - Most Recent: 176 lb 12.8 oz I&O - Last 24 Hours: Intake & Output 01/31/17 02/01/17 02/01/17 22:59 06:59 14:59 Intake Total 2700 1300 Output Total 1500 1700 Balance 1200 -400 Lab Results Last 24 Hours: Laboratory Results - last 24 hr 01/31/17 01/31/17 02/01/17 Range/Units 16:58 20:55 06:03 WBC 11.69 H (3.98-10.04) K/mm3 RBC 5.03 (3.98-5.22) M/mm3 Hgb 15.9 H (11.2-15.7) gm/L Hct 45.3 H (34.1-44.9) % MCV 90.1 (79.4-94.8) fl MCH 31.6 (25.6-32.2) pg MCHC 35.1 (32.2-35.5) g/dl RDW Std Deviation 42.5 (36.4-46.3) fL Plt Count 251 (182-369) K/mm3 MPV 10.2 (9.4-12.3) fl Neut % (Auto) 69.3 (34.0-71.1) % Lymph % (Auto) 22.9 (19.3-51.7) % [place] % (Auto) 5.6 (4.7-12.5) % Eos % (Auto) 1.6 (0.7-5.8) Baso % (Auto) 0.3 (0.1-1.2) % Neut # (Auto) 8.09 H (1.56-6.13) K/mm3 Lymph # (Auto) 2.68 (1.18-3.74) K/mm3 [place] # (Auto) 0.65 H (0.24-0.36) K/mm3 Eos # (Auto) 0.19 (0.04-0.36) K/mm3 Baso # (Auto) 0.04 (0.01-0.08) K/mm3 Sodium (136-145) mEq/L Potassium (3.5-5.1) mEq/L Chloride (98-107) mEq/L Carbon Dioxide (21-32) mEq/L Anion Gap (5-15) BUN (7-18) mg/dL Creatinine (0.55-1.02) mg/dL Est Cr Clr Drug Dosing mL/min Estimated GFR (MDRD) (>60) mL/min BUN/Creatinine Ratio (14-18) Glucose (74-106) mg/dL POC Glucose 236 H 229 H (70-105) mg/dL Calcium (8.5-10.1) mg/dL Magnesium (1.8-2.4) mg/dl Lipase (73-393) U/L 02/01/17 02/01/17 02/01/17 Range/Units 06:03 06:03 06:59 WBC (3.98-10.04) K/mm3 RBC (3.98-5.22) M/mm3 Hgb (11.2-15.7) gm/L Hct (34.1-44.9) % MCV (79.4-94.8) fl MCH (25.6-32.2) pg MCHC (32.2-35.5) g/dl RDW Std Deviation (36.4-46.3) fL Plt Count (182-369) K/mm3 MPV (9.4-12.3) fl Neut % (Auto) (34.0-71.1) % Lymph % (Auto) (19.3-51.7) % [place] % (Auto) (4.7-12.5) % Eos % (Auto) (0.7-5.8) Baso % (Auto) (0.1-1.2) % Neut # (Auto) (1.56-6.13) K/mm3 Lymph # (Auto) (1.18-3.74) K/mm3 [place] # (Auto) (0.24-0.36) K/mm3 Eos # (Auto) (0.04-0.36) K/mm3 Baso # (Auto) (0.01-0.08) K/mm3 Sodium 136 (136-145) mEq/L Potassium 4.0 (3.5-5.1) mEq/L Chloride 101 (98-107) mEq/L Carbon Dioxide 27 (21-32) mEq/L Anion Gap 12.0 (5-15) BUN 16 (7-18) mg/dL Creatinine 0.6 (0.55-1.02) mg/dL Est Cr Clr Drug Dosing 95.60 mL/min Estimated GFR (MDRD) > 60 (>60) mL/min BUN/Creatinine Ratio 26.7 H (14-18) Glucose 285 H (74-106) mg/dL POC Glucose 254 H (70-105) mg/dL Calcium 9.4 (8.5-10.1) mg/dL Magnesium 1.8 (1.8-2.4) mg/dl Lipase 105 (73-393) U/L 02/01/17 Range/Units 11:28 WBC (3.98-10.04) K/mm3 RBC (3.98-5.22) M/mm3 Hgb (11.2-15.7) gm/L Hct (34.1-44.9) % MCV (79.4-94.8) fl MCH (25.6-32.2) pg MCHC (32.2-35.5) g/dl RDW Std Deviation (36.4-46.3) fL Plt Count (182-369) K/mm3 MPV (9.4-12.3) fl Neut % (Auto) (34.0-71.1) % Lymph % (Auto) (19.3-51.7) % [place] % (Auto) (4.7-12.5) % Eos % (Auto) (0.7-5.8) Baso % (Auto) (0.1-1.2) % Neut # (Auto) (1.56-6.13) K/mm3 Lymph # (Auto) (1.18-3.74) K/mm3 [place] # (Auto) (0.24-0.36) K/mm3 Eos # (Auto) (0.04-0.36) K/mm3 Baso # (Auto) (0.01-0.08) K/mm3 Sodium (136-145) mEq/L Potassium (3.5-5.1) mEq/L Chloride (98-107) mEq/L Carbon Dioxide (21-32) mEq/L Anion Gap (5-15) BUN (7-18) mg/dL Creatinine (0.55-1.02) mg/dL Est Cr Clr Drug Dosing mL/min Estimated GFR (MDRD) (>60) mL/min BUN/Creatinine Ratio (14-18) Glucose (74-106) mg/dL POC Glucose 280 H (70-105) mg/dL Calcium (8.5-10.1) mg/dL Magnesium (1.8-2.4) mg/dl Lipase (73-393) U/L Med Orders - Current: Current Medications Dextrose/Water (Dextrose 50% In Water) 50 ml IVPUSH ASDIRECTED PRN PRN Reason: Hypoglycemia Duloxetine HCl (Cymbalta) 30 mg PO DAILY [facility], [facility] Last Admin: 02/01/17 10:18 Dose: 30 mg Enoxaparin Sodium (Lovenox) 40 mg SUBCUT DAILY [facility], [facility] Last Admin: 02/01/17 10:18 Dose: 40 mg Glipizide (Glucotrol) 5 mg PO ACBREAKFAST [facility], [facility] Last Admin: 02/01/17 10:17 Dose: 5 mg Insulin Aspart (Novolog) 0 unit SUBCUT QIDACANDBED [facility], [facility]–1983 PRN Reason: Protocol Last Admin: 02/01/17 11:39 Dose: 6 units Losartan Potassium (Cozaar) 50 mg PO DAILY [facility] Last Admin: 02/01/17 10:19 Dose: 50 mg Metformin HCl (Glucophage) 1,000 mg PO BIDMEALS [facility], [facility]1983 Miscellaneous Information (Remove Patch) 1 ea TRDERM BEDTIME [facility], [facility] Last Admin: 01/31/17 20:50 Dose: 1 ea Morphine Sulfate (Morphine) 2 mg IVPUSH Q4H PRN PRN Reason: Pain Last Admin: 01/31/17 06:57 Dose: 2 mg Nicotine (Habitrol) 21 mg TRDERM DAILY [facility] Last Admin: 02/01/17 10:20 Dose: 21 mg Nitroglycerin (Nitrostat) 0.4 mg SL Q5M PRN PRN Reason: Chest Pain Pantoprazole Sodium (Protonix) 40 mg PO DAILY@0700 [facility] Last Admin: 02/01/17 06:53 Dose: 40 mg Rosuvastatin Calcium (Crestor) 10 mg PO BEDTIME [facility] Last Admin: 01/31/17 20:49 Dose: 10 mg Sodium Chloride (Saline Flush) 10 ml FLUSH ASDIRECTED PRN PRN Reason: Keep Vein Open Last Admin: 01/30/17 21:36 Dose: 10 ml Sodium Chloride (Saline Flush) 10 ml FLUSH ONETIME [facility]1983 Stop: 02/01/17 16:00 Last Admin: 02/01/17 08:45 Dose: 10 ml Temazepam (Restoril) 7.5 mg PO BEDTIME PRN PRN Reason: Sleep Last Admin: 01/31/17 20:49 Dose: 7.5 mg Discontinued Medications Acetaminophen (Tylenol) 325 mg PO NOW ONE Stop: 01/31/17 01:48 Last Admin: 01/31/17 02:00 Dose: 325 mg Hydrocodone Bitart/Acetaminophen ([place] 325-5 Mg) 1 tab PO ONETIME ONE Stop: 02/01/17 11:00 Last Admin: 02/01/17 11:15 Dose: 1 tab Aspirin (Aspirin) 324 mg PO ONETIME ONE Stop: 01/30/17 21:29 Last Admin: 01/30/17 21:36 Dose: 324 mg Cyclobenzaprine HCl (Flexeril) 10 mg PO ONETIME ONE Stop: 01/31/17 11:31 Last Admin: 01/31/17 11:55 Dose: 10 mg Diphtheria/Tetanus/Acell Pertussis (Adacel) 0.5 ml IM .ONCE ONE Stop: 01/31/17 01:18 Insulin Aspart (Novolog) 0 unit SUBCUT QIDACANDBED [facility], [facility]1983 PRN Reason: Protocol Last Admin: 01/31/17 11:55 Dose: 3 units Magnesium Oxide (Magnesium Oxide) 800 mg PO ONETIME ONE Stop: 01/31/17 07:03 Last Admin: 01/31/17 09:41 Dose: 800 mg Nicotine (Habitrol) 21 mg TRDERM ONETIME ONE Stop: 01/30/17 23:04 Last Admin: 01/31/17 00:00 Dose: 21 mg Nitroglycerin (Nitro-Bid 2%) 0.5 gm TOP Q6H [facility]1983 Stop: 01/31/17 06:46 Last Admin: 01/31/17 06:01 Dose: 0.5 gm Pneumococcal Polyvalent Vaccine (Pneumovax 23) 0.5 ml IM .ONCE ONE Stop: 01/31/17 01:18 Potassium Chloride (Klor-Con M20) 40 meq PO ONETIME ONE Stop: 01/31/17 07:02 Last Admin: 01/31/17 09:41 Dose: 40 meq Regadenoson (Lexiscan) 0.4 mg IVPUSH ONETIME ONE Stop: 02/01/17 08:28 Last Admin: 02/01/17 08:45 Dose: 0.4 mg - Exam Quality Assessment: DVT Prophylaxis General: Alert, Cooperative, No Acute Distress HEENT: Pupils Equal, EOMI, Mucous Membr. Moist/[place] Neck: Supple Lungs: Clear to Auscultation, Normal Respiratory Effort, Decreased Breath Sounds (bases) Cardiovascular: Regular Rate, Regular Rhythm GI/Abdominal Exam: Normal Bowel Sounds, Soft (Female) Exam: Deferred Back Exam: Normal Inspection Extremities: Normal Inspection, No Pedal Edema Peripheral Pulses: 1+: Dorsalis Pedis (L), Dorsalis Pedis (R) Skin: Warm, Dry Neurological: No New Focal Deficit Psy/Mental Status: Alert, Normal Affect, Normal Mood - Problem List & Annotations (1) Chest pain SNOMED Code(s): 54356044 Code(s): R07.9 - CHEST PAIN, UNSPECIFIED Status: Acute Priority: High Current Visit: Yes Qualifiers: Chest pain type: unspecified Qualified Code(s): R07.9 - Chest pain, unspecified (2) Headache SNOMED Code(s): 81373670 Code(s): R51 - HEADACHE Status: Resolved Priority: Medium Current Visit : Yes Qualifiers: Headache type: tension-type Headache chronicity pattern: episodic headache Intractability: intractable Qualified Code(s): G44.211 - Episodic tension- type headache, intractable (3) Hypercholesterolemia SNOMED Code(s): 71587865 Code(s): E78.00 - PURE HYPERCHOLESTEROLEMIA, UNSPECIFIED Status: Chronic Priority: High Current Visit: Yes (4) Hyperglycemia due to type 2 diabetes mellitus SNOMED Code(s): 375663355467282, 214165020214319 Code(s): E11.65 - TYPE 2 DIABETES MELLITUS WITH HYPERGLYCEMIA Status: Chronic Priority: High Current Visit: Yes Qualifiers: Diabetes mellitus terminal supervisor insulin use: unspecified longterm insulin use status Qualified Code(s): E11.65 - Type 2 diabetes mellitus with hyperglycemia (5) Tobacco use disorder SNOMED Code(s): 112753868, 712200941 Code(s): F17.200 - NICOTINE DEPENDENCE, UNSPECIFIED, UNCOMPLICATED Status: Chronic Priority: High Current Visit: Yes (6) Hypertension SNOMED Code(s): 86945313 Code(s): I10 - ESSENTIAL (PRIMARY) HYPERTENSION Status: Chronic Priority : Medium Current Visit: Yes Qualifiers: Hypertension type: essential hypertension Qualified Code(s): I10 - Essential (primary) hypertension - Problem List Review Problem List Initiated/Reviewed/Updated: Yes - My Orders Last 24 Hours: My Active Orders 02/01/17 10:00 glipiZIDE [Glucotrol] 5 mg PO ACBREAKFAST 02/01/17 17:00 metFORMIN [Glucophage] 1,000 mg PO BIDMEALS - Plan Plan:: I/P: Acute: Atypical chest pain -Serial Troponins, EKG's negative -Echo results pending -Lexiscan done this morning with negative electrographic portion; awaiting nuclear portion results- if negative, will discharge home later today Headache--resolved today - Avoiding caffeine if possible, as attempting to rule out cardiac cause of CP - Possibly 2/2 nitroglycerine administration - Treat as indicated/needed Chronic: HTN-stable, cont home meds Type II Diabetic: - BS in 300's; A1C 9.2 - Poorly controlled at home - Novolog SSI, accuchecks AC/HS - CDE - Restart metformin, add glipizide, fup with PCP within one wk of DC Hypercholesterolemia - Lipid panel with cholesterol levels significantly elevated; with DM target will be LDL of 70 or < - Crestor - F/u with PCP after DC Tobacco use disorder - nicotine patch - smoking cessation counseling Plan: SW/CM for discharge planning PT/OT as needed Routine labs as ordered GI/DVT prophylaxis Plan DC home later today vs tomorrow pending nuclear imaging results. Code status: Full code
--- NOTE | 2017-02-01 13:52 | PCM.DCSUM1 ---
Discharge Summary - Hospital Course Free Text/Narrative:: Janessa Brown is a 51-year-old female patient who was seen in our ED on the evening of 01/30/17. She presented with a chest pressure that started in the morning, comes and goes, and was worse with exertion. She reported being sweaty at times and having chills. She also reported a slight cough productive of clear phlegm. No history of CAD, however she does have a history of type II diabetes, HTN, hypercholesterolemia, GERD, and she is a smoker. She reports smoking 1 pack every day for 30 years. She does have a family history of heart disease with her mother. Denies abdominal pain nausea or vomiting. She denies any shortness of breath. Her initial vital signs were pulse 80, respirations 20 , BP 160/80, pulse ox of 96. EKG in the ED showed normal sinus rhythm at 76 beats per minute with no ectopy noted. She was started on 2 L of oxygen and given aspirin. White count was 8.90, hemoglobin 15.0, hematocrit 42.8, platelets 264, d-dimer was negative at 0.23, her sodium was low at 136, potassium 3.8, creatinine 0.6, liver enzymes were normal, and troponin was negative. Her glucose was elevated at 396. Her chest pain resolved in the ED and she was subsequently admitted to [facility] for chest pain rule out. Chest x-ray was unremarkable with mediastinum and cardiac silhouette within normal limits. There were some degenerative changes noted. She was started on nitroglycerin paste and oxygen therapy via NC continued at 2 L. Upon further investigation patient reports that the chest pressure does come and go occasionally and she has had it for some time. She rates it a 10/10 when it does occur. She said she can normally hold her breath or rest and the feeling will go away, lasting only for a few seconds. She did however state that he can last as long as a couple of minutes. She reported the pressure will start above her left breast and sometimes will radiate to the right side. It does not radiate into her neck, back, or arms. It is currently a 1-2 in intensity. She has never been evaluated for this chest pressure before. She also is complaining of a headache. She reports they are migraines, however upon further examination, they start in the back of her neck and radiate upwards to her forehead in a cap-like fashion. She reports being on OTC medication for this with caffeine. She has been a type II diabetic for quite sometime. Her sugars here have been rather high. I questioned her about what her sugars have been at home and she reports are normally in the 300s. She states she checks her sugars about once a week. I asked who follows her for diabetic medications and how often they check her, or if there have been any concerns with her numbers lately. She reports that she has had difficulty getting in to [facility], as there fairly booked up. She also states that she is unable to get a regular provider when she goes there. She states she was as low as 150 once many years ago however she has not been that low since then. Patient is admitted to med/surg tele for r/o atypical chest pain. Course of hospital stay was uneventful. Chest pain initially was intermittent lasting only seconds. Serial troponins were negative as were serial EKG's. Telemetry was unremarkable. She had negative stress test both electrographically and nuclear imaging. VS were stable. She was seen by CDE for her DM. Recommendations for her to cont with CDE f/up as outpatient. F/up with PCP within one week of discharge. - Discharge Data Discharge Date: 02/01/17 (admit date 01/31/17) Discharge Disposition: Home, Self-Care 01 Condition: Good - Discharge Diagnosis/Problem(s) (1) Chest pain SNOMED Code(s): 18965062 ICD Code: R07.9 - CHEST PAIN, UNSPECIFIED Status: Acute Priority: High Qualifiers: Chest pain type: unspecified Qualified Code(s): R07.9 - Chest pain, unspecified (2) Headache SNOMED Code(s): 74660469 ICD Code: R51 - HEADACHE Status: Resolved Priority: Medium Qualifiers: Headache type: tension-type Headache chronicity pattern: episodic headache Intractability: intractable Qualified Code(s): G44.211 - Episodic tension- type headache, intractable (3) Hypercholesterolemia SNOMED Code(s): 37536838 ICD Code: E78.00 - PURE HYPERCHOLESTEROLEMIA, UNSPECIFIED Status: Chronic Priority: High (4) Hyperglycemia due to type 2 diabetes mellitus SNOMED Code(s): 009755631026610, 724271099349698 ICD Code: E11.65 - TYPE 2 DIABETES MELLITUS WITH HYPERGLYCEMIA Status: Chronic Priority: High Qualifiers: 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: unspecified nursing home insulin use status Qualified Code(s): E11.65 - Type 2 diabetes mellitus with hyperglycemia (5) Tobacco use disorder SNOMED Code(s): 397980618, 620879520 ICD Code: F17.200 - NICOTINE DEPENDENCE, UNSPECIFIED, UNCOMPLICATED Status : Chronic Priority: High (6) Hypertension SNOMED Code(s): 72701816 ICD Code: I10 - ESSENTIAL (PRIMARY) HYPERTENSION Status: Chronic Priority : Medium Qualifiers: Hypertension type: essential hypertension Qualified Code(s): I10 - Essential (primary) hypertension - Patient Summary/Data Operative Procedure(s) Performed: None Complications: None Consults: Consultations 01/31/17 11:00 Consult to Diabetic Nurse Specialist [CONS] Routine Labs Pending at D/C: None Recommended Follow-up Testing/Procedures: Follow up with PCP within one week of discharge Planned Operative Procedure(s) after DC: None Hospital Course: As above - Patient Instructions Diet: Heart Healthy Diet, Diabetic Diet Activity: As Tolerated Driving: Do Not Drive (today) Showering/Bathing: May Shower Notify Provider of: Fever, Increased Pain, Swelling and Redness, Nausea and/or Vomiting (chest pain, shortness of breath) - Discharge Plan Prescriptions/Med Rec: glipiZIDE [Glucotrol] 5 mg PO ACBREAKFAST #30 tablet metFORMIN [Glucophage] 1,000 mg PO BID #60 tablet Nicotine [Habitrol] 21 mg TRDERM DAILY #30 patch Rosuvastatin [Crestor] 10 mg PO BEDTIME #30 tablet Home Medications: Home Meds Sulfamethoxazole/Trimethoprim [Bactrim Ds Tablet] 1 tab PO Q12H #10 tablet 10/28 [Rx] DULoxetine [Cymbalta] 30 mg PO DAILY 01/30/17 [History] Losartan [Cozaar] 50 mg PO DAILY 01/30/17 [History] Aspirin/Acetaminophen/Caffeine [Migraine Formula Caplet] 1 tab PO Q12HR PRN 10/12 [History] Cyclobenzaprine [Flexeril] 10 mg PO BID PRN 01/31/17 [History] Omeprazole Magnesium [Prilosec Otc] 20 mg PO DAILY 01/31/17 [History] Nicotine [Habitrol] 21 mg TRDERM DAILY #30 patch 02/01/17 [Rx] Rosuvastatin [Crestor] 10 mg PO BEDTIME #30 tablet 02/01/17 [Rx] glipiZIDE [Glucotrol] 5 mg PO ACBREAKFAST #30 tablet 02/01/17 [Rx] metFORMIN [Glucophage] 1,000 mg PO BID #60 tablet 02/01/17 [Rx] Patient Handouts: Smoking Cessation, Tips for Success, Mwak-ho-Teuz, Type 2 Diabetes Mellitus, Adult, Diabetes and Foot Care, Heart Disease Prevention, Diabetes and Standards of Medical Care, Diabetes and Sick Day Management, Hyperglycemia, Auig-mx-[id number], Nonspecific Chest Pain, Gzns-kc-Bsba, Food Choices to Lower Your Triglycerides, How to Avoid Diabetes Problems, Type 2 Diabetes Mellitus, Adult, Aemb-qx-Mwby, Angina Pectoris, Rtrx-qc-Jeac, Diabetes and Exercise Referrals: PCP,None [Primary Care Provider] - (Please schedule a follow-up appointment with your primary care doctor within the next 2 weeks. ) - Discharge Summary/Plan Comment DC Time >30 min.: Yes (40 min) - General Info Date of Service: 02/01/17 Admission Dx/Problem (Free Text: Admission Diagnosis/Problem Admission Diagnosis/Problem Chest pain Patient is seen this morning. States slept very well last night. No bouts of chest pains overnight. Has been up and moving around. Headache is improved/ resolved from yesterday. C/O back and hip pains this morning, chronic and not unusual for her. She has been NPO since NC for stress test today. Functional Status: Reports: Pain Controlled, Tolerating Diet, Ambulating, Urinating. Denies: New Symptoms - Review of Systems General: Reports: No Symptoms HEENT: Reports: No Symptoms Pulmonary: Reports: No Symptoms, Cough (chronic "smokers cough"). Denies: Shortness of Breath Cardiovascular: Reports: No Symptoms. Denies: Chest Pain, Palpitations Gastrointestinal: Reports: No Symptoms. Denies: Diarrhea, Nausea, Vomiting Genitourinary: Reports: No Symptoms Musculoskeletal: Reports: No Symptoms Skin: Reports: No Symptoms Neurological: Reports: No Symptoms - Patient Data Vitals - Most Recent: Last Vital Signs Temp 98.2 F 02/01/17 13:25 Pulse 75 02/01/17 13:25 Resp 20 02/01/17 13:25 BP 118/69 02/01/17 13:25 Pulse Ox 96 02/01/17 13:25 Weight - Most Recent: 176 lb 12.8 oz I&O - Last 24 hours: Intake & Output 01/31/17 02/01/17 02/01/17 22:59 06:59 14:59 Intake Total 2700 1300 Output Total 1500 1700 Balance 1200 -400 Lab Results - Last 24 hrs: Laboratory Results - last 24 hr 01/31/17 01/31/17 02/01/17 Range/Units 16:58 20:55 06:03 WBC 11.69 H (3.98-10.04) K/mm3 RBC 5.03 (3.98-5.22) M/mm3 Hgb 15.9 H (11.2-15.7) gm/L Hct 45.3 H (34.1-44.9) % MCV 90.1 (79.4-94.8) fl MCH 31.6 (25.6-32.2) pg MCHC 35.1 (32.2-35.5) g/dl RDW Std Deviation 42.5 (36.4-46.3) fL Plt Count 251 (182-369) K/mm3 MPV 10.2 (9.4-12.3) fl Neut % (Auto) 69.3 (34.0-71.1) % Lymph % (Auto) 22.9 (19.3-51.7) % [place] % (Auto) 5.6 (4.7-12.5) % Eos % (Auto) 1.6 (0.7-5.8) Baso % (Auto) 0.3 (0.1-1.2) % Neut # (Auto) 8.09 H (1.56-6.13) K/mm3 Lymph # (Auto) 2.68 (1.18-3.74) K/mm3 [place] # (Auto) 0.65 H (0.24-0.36) K/mm3 Eos # (Auto) 0.19 (0.04-0.36) K/mm3 Baso # (Auto) 0.04 (0.01-0.08) K/mm3 Sodium (136-145) mEq/L Potassium (3.5-5.1) mEq/L Chloride (98-107) mEq/L Carbon Dioxide (21-32) mEq/L Anion Gap (5-15) BUN (7-18) mg/dL Creatinine (0.55-1.02) mg/dL Est Cr Clr Drug Dosing mL/min Estimated GFR (MDRD) (>60) mL/min BUN/Creatinine Ratio (14-18) Glucose (74-106) mg/dL POC Glucose 236 H 229 H (70-105) mg/dL Calcium (8.5-10.1) mg/dL Magnesium (1.8-2.4) mg/dl Lipase (73-393) U/L 02/01/17 02/01/17 02/01/17 Range/Units 06:03 06:03 06:59 WBC (3.98-10.04) K/mm3 RBC (3.98-5.22) M/mm3 Hgb (11.2-15.7) gm/L Hct (34.1-44.9) % MCV (79.4-94.8) fl MCH (25.6-32.2) pg MCHC (32.2-35.5) g/dl RDW Std Deviation (36.4-46.3) fL Plt Count (182-369) K/mm3 MPV (9.4-12.3) fl Neut % (Auto) (34.0-71.1) % Lymph % (Auto) (19.3-51.7) % [place] % (Auto) (4.7-12.5) % Eos % (Auto) (0.7-5.8) Baso % (Auto) (0.1-1.2) % Neut # (Auto) (1.56-6.13) K/mm3 Lymph # (Auto) (1.18-3.74) K/mm3 [place] # (Auto) (0.24-0.36) K/mm3 Eos # (Auto) (0.04-0.36) K/mm3 Baso # (Auto) (0.01-0.08) K/mm3 Sodium 136 (136-145) mEq/L Potassium 4.0 (3.5-5.1) mEq/L Chloride 101 (98-107) mEq/L Carbon Dioxide 27 (21-32) mEq/L Anion Gap 12.0 (5-15) BUN 16 (7-18) mg/dL Creatinine 0.6 (0.55-1.02) mg/dL Est Cr Clr Drug Dosing 95.60 mL/min Estimated GFR (MDRD) > 60 (>60) mL/min BUN/Creatinine Ratio 26.7 H (14-18) Glucose 285 H (74-106) mg/dL POC Glucose 254 H (70-105) mg/dL Calcium 9.4 (8.5-10.1) mg/dL Magnesium 1.8 (1.8-2.4) mg/dl Lipase 105 (73-393) U/L 02/01/17 Range/Units 11:28 WBC (3.98-10.04) K/mm3 RBC (3.98-5.22) M/mm3 Hgb (11.2-15.7) gm/L Hct (34.1-44.9) % MCV (79.4-94.8) fl MCH (25.6-32.2) pg MCHC (32.2-35.5) g/dl RDW Std Deviation (36.4-46.3) fL Plt Count (182-369) K/mm3 MPV (9.4-12.3) fl Neut % (Auto) (34.0-71.1) % Lymph % (Auto) (19.3-51.7) % [place] % (Auto) (4.7-12.5) % Eos % (Auto) (0.7-5.8) Baso % (Auto) (0.1-1.2) % Neut # (Auto) (1.56-6.13) K/mm3 Lymph # (Auto) (1.18-3.74) K/mm3 [place] # (Auto) (0.24-0.36) K/mm3 Eos # (Auto) (0.04-0.36) K/mm3 Baso # (Auto) (0.01-0.08) K/mm3 Sodium (136-145) mEq/L Potassium (3.5-5.1) mEq/L Chloride (98-107) mEq/L Carbon Dioxide (21-32) mEq/L Anion Gap (5-15) BUN (7-18) mg/dL Creatinine (0.55-1.02) mg/dL Est Cr Clr Drug Dosing mL/min Estimated GFR (MDRD) (>60) mL/min BUN/Creatinine Ratio (14-18) Glucose (74-106) mg/dL POC Glucose 280 H (70-105) mg/dL Calcium (8.5-10.1) mg/dL Magnesium (1.8-2.4) mg/dl Lipase (73-393) U/L Med Orders - Current: Current Medications Dextrose/Water (Dextrose 50% In Water) 50 ml IVPUSH ASDIRECTED PRN PRN Reason: Hypoglycemia Duloxetine HCl (Cymbalta) 30 mg PO DAILY [facility] Last Admin: 02/01/17 10:18 Dose: 30 mg Enoxaparin Sodium (Lovenox) 40 mg SUBCUT DAILY [facility] Last Admin: 02/01/17 10:18 Dose: 40 mg Glipizide (Glucotrol) 5 mg PO ACBREAKFAST [facility] Last Admin: 02/01/17 10:17 Dose: 5 mg Insulin Aspart (Novolog) 0 unit SUBCUT QIDACANDBED [facility] PRN Reason: Protocol Last Admin: 02/01/17 11:39 Dose: 6 units Losartan Potassium (Cozaar) 50 mg PO DAILY [facility] Last Admin: 02/01/17 10:19 Dose: 50 mg Metformin HCl (Glucophage) 1,000 mg PO BIDMEALS [facility] Miscellaneous Information (Remove Patch) 1 ea TRDERM BEDTIME [facility] Last Admin: 01/31/17 20:50 Dose: 1 ea Morphine Sulfate (Morphine) 2 mg IVPUSH Q4H PRN PRN Reason: Pain Last Admin: 01/31/17 06:57 Dose: 2 mg Nicotine (Habitrol) 21 mg TRDERM DAILY [facility] Last Admin: 02/01/17 10:20 Dose: 21 mg Nitroglycerin (Nitrostat) 0.4 mg SL Q5M PRN PRN Reason: Chest Pain Pantoprazole Sodium (Protonix) 40 mg PO DAILY@0700 [facility] Last Admin: 02/01/17 06:53 Dose: 40 mg Rosuvastatin Calcium (Crestor) 10 mg PO BEDTIME [facility] Last Admin: 01/31/17 20:49 Dose: 10 mg Sodium Chloride (Saline Flush) 10 ml FLUSH ASDIRECTED PRN PRN Reason: Keep Vein Open Last Admin: 01/30/17 21:36 Dose: 10 ml Sodium Chloride (Saline Flush) 10 ml FLUSH ONETIME MIKE Stop: 02/01/17 16:00 Last Admin: 02/01/17 08:45 Dose: 10 ml Temazepam (Restoril) 7.5 mg PO BEDTIME PRN PRN Reason: Sleep Last Admin: 01/31/17 20:49 Dose: 7.5 mg Discontinued Medications Acetaminophen (Tylenol) 325 mg PO NOW ONE Stop: 01/31/17 01:48 Last Admin: 01/31/17 02:00 Dose: 325 mg Hydrocodone Bitart/Acetaminophen ([place] 325-5 Mg) 1 tab PO ONETIME ONE Stop: 02/01/17 11:00 Last Admin: 02/01/17 11:15 Dose: 1 tab Aspirin (Aspirin) 324 mg PO ONETIME ONE Stop: 01/30/17 21:29 Last Admin: 01/30/17 21:36 Dose: 324 mg Cyclobenzaprine HCl (Flexeril) 10 mg PO ONETIME ONE Stop: 01/31/17 11:31 Last Admin: 01/31/17 11:55 Dose: 10 mg Diphtheria/Tetanus/Acell Pertussis (Adacel) 0.5 ml IM .ONCE ONE Stop: 01/31/17 01:18 Insulin Aspart (Novolog) 0 unit SUBCUT QIDACANDBED [facility] PRN Reason: Protocol Last Admin: 01/31/17 11:55 Dose: 3 units Magnesium Oxide (Magnesium Oxide) 800 mg PO ONETIME ONE Stop: 01/31/17 07:03 Last Admin: 01/31/17 09:41 Dose: 800 mg Nicotine (Habitrol) 21 mg TRDERM ONETIME ONE Stop: 01/30/17 23:04 Last Admin: 01/31/17 00:00 Dose: 21 mg Nitroglycerin (Nitro-Bid 2%) 0.5 gm TOP Q6H MIKE Stop: 01/31/17 06:46 Last Admin: 01/31/17 06:01 Dose: 0.5 gm Pneumococcal Polyvalent Vaccine (Pneumovax 23) 0.5 ml IM .ONCE ONE Stop: 01/31/17 01:18 Potassium Chloride (Klor-Con M20) 40 meq PO ONETIME ONE Stop: 01/31/17 07:02 Last Admin: 01/31/17 09:41 Dose: 40 meq Regadenoson (Lexiscan) 0.4 mg IVPUSH ONETIME ONE Stop: 02/01/17 08:28 Last Admin: 02/01/17 08:45 Dose: 0.4 mg - Exam Quality Assessment: Reports: DVT Prophylaxis General: Reports: Alert, Oriented, No Acute Distress HEENT: Reports: Pupils Equal, EOMI, Mucous Membr. Moist/[place] Neck: Reports: Supple Lungs: Reports: Clear to Auscultation, Decreased Breath Sounds (bases) Cardiovascular: Reports: Regular Rate, Regular Rhythm GI/Abdominal Exam: Normal Bowel Sounds, Soft, Non-Tender (Female) Exam: Deferred Rectal (Female) Exam: Deferred Back Exam: Reports: Normal Inspection Extremities: Normal Inspection, No Pedal Edema Skin: Reports: Warm, Dry, Intact Neurological: Reports: No New Focal Deficit Psy/Mental Status: Reports: Alert, Normal Affect, Normal Mood *Q Meaningful Use (DIS) - VTE *Q VTE Criteria *Q: - Stroke *Q Stroke Criteria *Q: - AMI *Q AMI Criteria *Q:
--- NOTE | 2017-02-01 14:35 | NM ---
Cardiolite cardiac exam Technique: I have data stating the patient was stressed utilizing Lexiscan protocol. Stress dose of technetium 99m Cardiolite was 11.4 mCi. Rest dose was 30.1 mCi. SPECT imaging was obtained in 3 planes for both portions of the study. Study was also gated. Low-dose chest CT performed to allow for attenuation correction. Comparison: No previous cardiac imaging. Findings: Activity is homogeneous between rest and stress study. No fixed or reversible type defects are seen. Ejection fraction is 63% which is normal. There is normal wall thickening and wall motion being seen. Impression: 1. No abnormality is identified on Cardiolite portion of cardiac stress test. Diagnostic code #1
[2017-02-01] MEDS ORDERED: metFORMIN 500 MG Tab PO SCH (17:00)
--- NOTE | 2017-02-06 00:24 | STRESS ---
REQUESTING PHYSICIAN: DATE: 02/01/2017 ORDERING PROVIDER: Silvano Zimmerman PA-C. PROCEDURE: Lexiscan stress test. INDICATION: Atypical chest pain. BASELINE EKG: Normal sinus rhythm, ventricular rate 70 beats per minute. PROTOCOL: Lexiscan. Max heart rate 91 beats per minute. Peak blood pressure 116/61, total test time 6 minutes. METS achieved 1.0. Reason for stopping test, completion of Lexiscan stress test. During exertion and recovery, the patient had no chest pain or anginal equivalents. There were no ischemic changes noted on EKG. No ST or T-wave changes noted. No arrhythmias were noted. IMPRESSION: 1. Electrographically negative Lexiscan test for ischemia. 2. Normal blood pressure response to stress. 3. Nuclear imaging results pending and will be reported separately per radiologist. MMODAL /[id number]
== END 2017-02-01 16:23 | disposition home or self-care (01) ==
LOC: JD.ED 21:08 → JD.MS 23:37
PROVIDERS: ADMIT Internal Medicine Cardiovascular Disease; ATTEND Internal Medicine Cardiovascular Disease
DX: R07.89 Other chest pain (principal); G44.211 Episodic tension-type headache, intractable; R05 Cough; E11.65 Type 2 diabetes mellitus with hyperglycemia; I10 Essential (primary) hypertension; E78.00 Pure hypercholesterolemia, unspecified; F17.210 Nicotine dependence, cigarettes, uncomplicated; K21.9 Gastro-esophageal reflux disease without esophagitis; K59.09 Other constipation; Z87.440 Personal history of urinary (tract) infections; Z82.49 Family history of ischemic heart disease and other diseases of the circulatory system; Z79.82 Long term (current) use of aspirin; Z79.84 Long term (current) use of oral hypoglycemic drugs; Z79.899 Other long term (current) drug therapy; Z98.51 Tubal ligation status
CPT/HCPCS: 36415; 71010; 78452; 80048; 80053; 80061; 82607; 82746; 82962; 83036; 83690; 83735; 84443; 84484; 85025; 85379; 90471; 90715; 93005; 93017; 93306; 94760; 96372; 99285; A9270; A9500; G0378; J1650; J1815; J2270; J2785; J7050; 90732; 99284; G0009